=== PATIENT | female | born 1950 | race Two or more races ===

== ENCOUNTER → 2020-09-23 | Day surgery (SDC) | payer MEDICARE, MEDICAID ==
[2020-09-18 12:17] LABS: Urine WBC None Seen /hpf (0 - 5)
[2020-09-18 12:29] LABS: Basophils # (auto) 0 10 ^3/uL (0-0.2); Basophils % (auto) 0.5 % (0.0-2.0); Eosinophils # (auto) 0.1 10 ^3/uL (0-0.8); Eosinophils % (auto) 0.8 % (0.0-7.0); Hematocrit 42.6 % (36.0-46.0); Hemoglobin 14.2 g/dL (12.2-16.2); Lymphocytes # (auto) 2.5 10 ^3/uL (0.4-5.4); Lymphocytes % (auto) 33.4 % (10.0-50.0); Mean Corpuscular Hgb Conc. 33.4 g/dL (32.0-36.0); Mean Corpuscular Volume 95.8 fL (80.0-100.0); Monocytes # (auto) 0.8 10 ^3/uL (0-1.3); Monocytes % (auto) 11.1 % (0.0-12.0); Neutrophils % (auto) 54.2 % (37.0-80.0); Nucleated Red Blood Cells % 0.2 %; Red Blood Cells 4.44 10^6/uL (4.0-5.20); Red Cell Distribution Width 13.7 % (11.8-14.3); White Blood Cell 7.4 10^3/uL (4.4-10.8)
[2020-09-18 12:35] LABS: Urine Bacteria FEW /hpf (None Seen); Urine Blood Negative /uL (Negative); Urine Hyaline Cast MOD /lpf (0 - 2); Urine Mucus FEW (None Seen); Urine Specific Gravity 1.025 (1.001-1.035)
[2020-09-18 12:59] LABS: INR 1.05 (0.9-1.15)
[2020-09-18 13:00] LABS: Potassium 3.7 mmol/L (3.5-5.1)
[2020-09-18 13:07] LABS: BUN/Creatinine Ratio 23.4; Calcium 9.2 mg/dL (8.5-10.1); Total Protein 7.5 g/dL (6.4-8.2)
[~2020-09-23] VITALS: Ht 152.4 cm; Wt 65.8 kg
[~2020-09-23] MED LIST: AMLO-489 PO; ASCO500T11 PO; CHOL500021 PO; GABA300C10 PO; HYDR-4072 PO; HYDR25TA4 PO; HYDROmorphone HCL 2 MG/ML VL IV PRN; MELO1TAB56 PO; MIDAZOLAM HCL 2MG/2ML 2ml VIAL (1mg/ml) ONE; MORPHINE SULFATE 4 MG/ML SYR/VIAL IV PRN; NEOMYCIN-BACITRACIN-POLYM 15GM TOP OINT TOP ONE; OMEP20TA PO; ONDANSETRON HCL 4 MG/2 ML VIAL IV PRN; ONDANSETRON HCL 4 MG/2 ML VIAL ONE; PROPOFOL 10 MG/ML 20 ML IV ONE; ROPIVACAINE 0.5% (5MG/ML) 20ML AMPULE IJ ONE; SODIUM CHLORIDE LOCK 10 ML ONE; ceFAZolin 1GM/50ML 50 ML IV ONE; fentaNYL CITRATE 100 MCG/2 ML VL ONE
[2020-09-23 10:40] VITALS: BP 139/73
== END | disposition home or self-care (01) ==
LOC: SUR 07:17
PROVIDERS: ATTEND Podiatrist Foot & Ankle Surgery
DX: M25.571 Pain in right ankle and joints of right foot (principal); H26.8 Other specified cataract; K21.9 Gastro-esophageal reflux disease without esophagitis; I10 Essential (primary) hypertension; Z88.5 Allergy status to narcotic agent; I25.118 Atherosclerotic heart disease of native coronary artery with other forms of angina pectoris; G62.89 Other specified polyneuropathies; G89.29 Other chronic pain; M19.90 Unspecified osteoarthritis, unspecified site; Z87.891 Personal history of nicotine dependence; Z20.822 Contact with and (suspected) exposure to COVID-19; Z98.890 Other specified postprocedural states; Z79.899 Other long term (current) drug therapy; Z90.710 Acquired absence of both cervix and uterus; Z86.19 Personal history of other infectious and parasitic diseases; Z88.8 Allergy status to other drugs, medicaments and biological substances
CPT/HCPCS: 20680; 36415; 80053; 81001; 85025; 85610; 85730; 88300; J0690; J1170; J2250; J2270; J2405; J2704; J2795; J3010; U0003

== ENCOUNTER → 2021-05-05 | Day surgery (SDC) | payer MEDICARE, MEDICAID ==
[2021-05-04 11:57] LABS: Potassium 3.6 mmol/L (3.5-5.1)
[2021-05-04 12:07] LABS: BUN/Creatinine Ratio 37.8; Calcium 8.8 mg/dL (8.5-10.1); Total Protein 7.1 g/dL (6.4-8.2)
[2021-05-04 12:09] LABS: Basophils # (auto) 0 10 ^3/uL (0-0.2); Basophils % (auto) 0.5 % (0.0-2.0); Eosinophils # (auto) 0 10 ^3/uL (0-0.8); Eosinophils % (auto) 0.6 % (0.0-7.0); Hematocrit 40.1 % (36.0-46.0); Hemoglobin 13.5 g/dL (12.2-16.2); Lymphocytes # (auto) 2.2 10 ^3/uL (0.4-5.4); Lymphocytes % (auto) 28.4 % (10.0-50.0); Mean Corpuscular Hemoglobin 32.8 pg (28.0-32.0); Mean Corpuscular Hgb Conc. 33.6 g/dL (32.0-36.0); Mean Corpuscular Volume 97.5 fL (80.0-100.0); Monocytes # (auto) 0.9 10 ^3/uL (0-1.3); Monocytes % (auto) 11.9 % (0.0-12.0); Neutrophils # (auto) 4.5 10 ^3/uL (1.6-8.6); Neutrophils % (auto) 58.6 % (37.0-80.0); Red Blood Cells 4.12 10^6/uL (4.0-5.20); Red Cell Distribution Width 13.3 % (11.8-14.3); White Blood Cell 7.6 10^3/uL (4.4-10.8)
[2021-05-04 12:32] LABS: Urine Bacteria NONE SEEN /hpf (None Seen); Urine Blood Negative /uL (Negative); Urine Mucus FEW (None Seen); Urine WBC <1 /hpf (0 - 5)
[~2021-05-05] VITALS: Ht 152.4 cm; Wt 59.9 kg
[~2021-05-05] MED LIST changes: +ATO40T PO; +DICY10CA PO; +METOCLOPRAMIDE HCL 5MG/ml INJ 2ml VIAL IV PRN; +NITR0.4S29 SL; +ONDA-144 PO; -ONDANSETRON HCL 4 MG/2 ML VIAL IV PRN; -SODIUM CHLORIDE LOCK 10 ML ONE; +SUCR1SUS5 PO; +ceFAZolin 1GM/50ML 100 ML IV ONE; -ceFAZolin 1GM/50ML 50 ML IV ONE; +methylPREDNISolone ACETATE 80 MG/ML VL ONE
[2021-05-05 12:25] VITALS: BP 125/75
== END | disposition home or self-care (01) ==
LOC: SUR 07:44
PROVIDERS: ATTEND Podiatrist Foot & Ankle Surgery
DX: G57.62 Lesion of plantar nerve, left lower limb (principal); I10 Essential (primary) hypertension; G89.29 Other chronic pain; F32.9 Major depressive disorder, single episode, unspecified; E78.5 Hyperlipidemia, unspecified; Z20.822 Contact with and (suspected) exposure to COVID-19; Z87.891 Personal history of nicotine dependence; Z98.890 Other specified postprocedural states; Z79.899 Other long term (current) drug therapy
CPT/HCPCS: 36415; 64704; 80053; 81001; 85025; J0690; J1040; J2250; J2270; J2405; J2704; J2795; J3010; U0003

== ENCOUNTER 2022-08-05 23:18 | Inpatient (IN) | payer MEDICARE, MEDICAID ==
[~2022-08-05] VITALS: Ht 152.4 cm; Wt 75.0 kg
[~2022-08-05 23:18] MED LIST changes: -HYDROmorphone HCL 2 MG/ML VL IV PRN; -METOCLOPRAMIDE HCL 5MG/ml INJ 2ml VIAL IV PRN; -MIDAZOLAM HCL 2MG/2ML 2ml VIAL (1mg/ml) ONE; -MORPHINE SULFATE 4 MG/ML SYR/VIAL IV PRN; -NEOMYCIN-BACITRACIN-POLYM 15GM TOP OINT TOP ONE; -ONDANSETRON HCL 4 MG/2 ML VIAL ONE; -PROPOFOL 10 MG/ML 20 ML IV ONE; -ROPIVACAINE 0.5% (5MG/ML) 20ML AMPULE IJ ONE; -ceFAZolin 1GM/50ML 100 ML IV ONE; -fentaNYL CITRATE 100 MCG/2 ML VL ONE; -methylPREDNISolone ACETATE 80 MG/ML VL ONE
[2022-08-06 00:37] LABS: Basophils # (auto) 0 10 ^3/uL (0-0.2); Basophils % (auto) 0.3 % (0.0-2.0); Eosinophils # (auto) 0 10 ^3/uL (0-0.8); Eosinophils % (auto) 0.1 % (0.0-7.0); Hematocrit 38.1 % (36.0-46.0); Hemoglobin 12.7 g/dL (12.2-16.2); Lymphocytes # (auto) 1.7 10 ^3/uL (0.4-5.4); Lymphocytes % (auto) 10.3 % (10.0-50.0); Mean Corpuscular Hemoglobin 32.5 pg (28.0-32.0); Mean Corpuscular Hgb Conc. 33.2 g/dL (32.0-36.0); Mean Corpuscular Volume 97.8 fL (80.0-100.0); Monocytes # (auto) 2.1 10 ^3/uL (0-1.3); Monocytes % (auto) 12.7 % (0.0-12.0); Neutrophils # (auto) 12.5 10 ^3/uL (1.6-8.6); Neutrophils % (auto) 76.6 % (37.0-80.0); Nucleated Red Blood Cells % 0.1 %; Red Cell Distribution Width 14.7 % (11.8-14.3); White Blood Cell 16.3 10^3/uL (4.4-10.8)
[2022-08-06 00:56] LABS: Albumin 2.3 g/dL (3.4-5.0); BUN/Creatinine Ratio 17.2
[2022-08-06 00:58] LABS: Bilirubin, Total 1.7 mg/dL (0.2-1.0); Total Protein 5.6 g/dL (6.4-8.2)
[2022-08-06 01:00] LABS: Lactic Acid w/Reflex 2.2 mmol/L (0.4-2.0)
[2022-08-06 01:01] LABS: Potassium 2.5 mmol/L (3.5-5.1)
[2022-08-06 01:02] LABS: Calcium 13.2 mg/dL (8.5-10.1)
[2022-08-06] MEDS ORDERED: POTASSIUM CHL 20 Meq TABLET PO ONE (01:30)
[2022-08-06 02:23] LABS: Urine WBC None Seen /hpf (0 - 5)
[2022-08-06 02:38] LABS: Urine Bacteria FEW /hpf (None Seen); Urine Blood TRACE /uL (Negative); Urine Specific Gravity 1.007 (1.001-1.035)
[2022-08-06] MEDS ORDERED: PIPERACILLIN-TAZOB 3.375GM 100 ML IV ONE (04:15)
[2022-08-06] MEDS ORDERED: FUROSEMIDE 20 MG/2 ML VIAL IV ONE (05:15)
[2022-08-06] MEDS ORDERED: POTASSIUM EFFERVESENT TAB 25 MEQ PO ONE (08:45)
[2022-08-06] MEDS ORDERED: ACETAMINOPHEN 325 MG TAB PO PRN (09:00)
[2022-08-06] MEDS ORDERED: NITROGLYCERIN 0.4 MG SL TAB SL PRN (09:00)
[2022-08-06] MEDS ORDERED: MORPHINE SULFATE INJ 2 MG/ml SYRG IV PRN (09:00)
[2022-08-06] MEDS ORDERED: IOHEXOL 350 MG/ML 100ML IJ ONE (09:02)
[2022-08-06] MEDS: ENOXAPARIN SOD 40 MG/0.4 ML SYRINGE SC SCH (09:15)
[2022-08-06] MEDS: ASCORBIC ACID 500 MG TAB PO SCH (09:15)
[2022-08-06] MEDS: amLODIPine BESYLATE 5 MG TAB PO SCH (09:16)
[2022-08-06] MEDS: HCTZ 25 MG TAB PO SCH (09:16)
[2022-08-06] MEDS: CHOLECALCIFEROL (VITD3) 1,000UNIT=25mCg TAB PO SCH (09:17)
[2022-08-06] MEDS ORDERED: MELOXICAM 15 MG TAB PO SCH (10:00)
[2022-08-06] MEDS: PIPERACILLIN-TAZOB 3.375GM 100 ML IV SCH ×2 (12:09→17:49)
[2022-08-06 13:19] LABS: Potassium 3.4 mmol/L (3.5-5.1)
[2022-08-06 13:21] LABS: Magnesium 1.2 mg/dL (1.6-2.6)
[2022-08-06] MEDS: GABAPENTIN 300 MG CAP PO SCH ×2 (14:00→21:49)
[2022-08-06] MEDS: ATORVASTATIN 20 MG TAB PO SCH (21:50)
[2022-08-06] MEDS: HYDROcodone-ACET 5/325MG TAB PO PRN (21:50)
[2022-08-06 22:00] VITALS: BP 134/79
[2022-08-07] VITALS (7 sets, daily range): BP systolic 100–132; BP diastolic 57–83
[2022-08-07] MEDS: PIPERACILLIN-TAZOB 3.375GM 100 ML IV SCH ×4 (00:02→22:00)
[2022-08-07] MEDS: GABAPENTIN 300 MG CAP PO SCH ×3 (05:39→22:33)
[2022-08-07 06:10] LABS: Basophils # (auto) 0 10 ^3/uL (0-0.2); Basophils % (auto) 0.2 % (0.0-2.0); Eosinophils # (auto) 0.1 10 ^3/uL (0-0.8); Eosinophils % (auto) 0.6 % (0.0-7.0); Hemoglobin 11.7 g/dL (12.2-16.2); Lymphocytes # (auto) 2.2 10 ^3/uL (0.4-5.4); Lymphocytes % (auto) 16.2 % (10.0-50.0); Mean Corpuscular Hemoglobin 32.3 pg (28.0-32.0); Mean Corpuscular Hgb Conc. 33.3 g/dL (32.0-36.0); Mean Corpuscular Volume 96.9 fL (80.0-100.0); Monocytes # (auto) 1.8 10 ^3/uL (0-1.3); Monocytes % (auto) 13.3 % (0.0-12.0); Neutrophils # (auto) 9.3 10 ^3/uL (1.6-8.6); Neutrophils % (auto) 69.7 % (37.0-80.0); Nucleated Red Blood Cells % 0.1 %; Red Blood Cells 3.61 10^6/uL (4.0-5.20); Red Cell Distribution Width 14.4 % (11.8-14.3); White Blood Cell 13.3 10^3/uL (4.4-10.8)
[2022-08-07 06:11] LABS: Albumin 2.1 g/dL (3.4-5.0); Calcium 12.6 mg/dL (8.5-10.1)
[2022-08-07 06:14] LABS: BUN/Creatinine Ratio 16.2; Bilirubin, Total 1.4 mg/dL (0.2-1.0); Total Protein 4.6 g/dL (6.4-8.2)
[2022-08-07 06:25] LABS: Potassium 2.4 mmol/L (3.5-5.1)
[2022-08-07] MEDS: POTASSIUM CHL 20MEQ/100ML 100 ML IV SCH ×3 (10:35→20:24)
[2022-08-07] MEDS: HYDROcodone-ACET 5/325MG TAB PO PRN (10:35)
[2022-08-07] MEDS: ASCORBIC ACID 500 MG TAB PO SCH (10:35)
[2022-08-07] MEDS: ENOXAPARIN SOD 40 MG/0.4 ML SYRINGE SC SCH (10:36)
[2022-08-07] MEDS: CHOLECALCIFEROL (VITD3) 1,000UNIT=25mCg TAB PO SCH (10:36)
[2022-08-07] MEDS: amLODIPine BESYLATE 5 MG TAB PO SCH (10:42)
[2022-08-07] MEDS: HCTZ 25 MG TAB PO SCH (10:42)
[2022-08-07] MEDS ORDERED: MAGNESIUM OXIDE 400 MG TAB PO ONE (13:00)
[2022-08-07] MEDS ORDERED: POTASSIUM CHL 20 Meq TABLET PO ONE ×2 (13:00→14:30)
[2022-08-07 14:07] LABS: Urine Bacteria FEW /hpf (None Seen); Urine Blood Negative /uL (Negative); Urine Mucus FEW (None Seen); Urine Specific Gravity 1.029 (1.001-1.035); Urine WBC 59 /hpf (0 - 5)
[2022-08-07] MEDS: SODIUM CHLORIDE 0.9% 1,000 ML IV ONE ×3 (15:00→18:31)
[2022-08-07] MEDS: SOD CHL 0.9%/ KCL 40MEQ 1,000 ML IV ONE ×2 (15:20→22:31)
[2022-08-07] MEDS ORDERED: MAGNESIUM SULFATE 1GM/100ML 0 ML IV ONE (20:09)
[2022-08-07] MEDS ORDERED: POTASSIUM CHL 20MEQ/100ML 100 ML IV ONE (20:20)
[2022-08-07] MEDS ORDERED: MAGNESIUM SULFATE 1GM/100ML 300 ML IV ONE (20:22)
[2022-08-07] MEDS: ATORVASTATIN 20 MG TAB PO SCH (22:33)
[2022-08-08] MEDS: MAGNESIUM SULFATE 1GM/100ML 100 ML IV SCH ×3 (00:05→01:53)
[2022-08-08] MEDS: PIPERACILLIN-TAZOB 3.375GM 100 ML IV SCH ×4 (02:54→21:32)
[2022-08-08 05:00] VITALS: BP 113/78
[2022-08-08] MEDS: GABAPENTIN 300 MG CAP PO SCH ×3 (06:02→21:32)
[2022-08-08 06:18] LABS: Basophils # (auto) 0 10 ^3/uL (0-0.2); Basophils % (auto) 0.4 % (0.0-2.0); Eosinophils # (auto) 0.1 10 ^3/uL (0-0.8); Hematocrit 38.8 % (36.0-46.0); Hemoglobin 12.9 g/dL (12.2-16.2); Lymphocytes # (auto) 1.9 10 ^3/uL (0.4-5.4); Lymphocytes % (auto) 14.5 % (10.0-50.0); Mean Corpuscular Hemoglobin 32.3 pg (28.0-32.0); Mean Corpuscular Hgb Conc. 33.1 g/dL (32.0-36.0); Mean Corpuscular Volume 97.5 fL (80.0-100.0); Monocytes # (auto) 1.7 10 ^3/uL (0-1.3); Monocytes % (auto) 12.9 % (0.0-12.0); Neutrophils # (auto) 9.4 10 ^3/uL (1.6-8.6); Neutrophils % (auto) 71.2 % (37.0-80.0); Nucleated Red Blood Cells % 0.1 %; Red Blood Cells 3.98 10^6/uL (4.0-5.20); Red Cell Distribution Width 14.7 % (11.8-14.3); White Blood Cell 13.2 10^3/uL (4.4-10.8)
[2022-08-08 06:36] LABS: BUN/Creatinine Ratio 17.1; Magnesium 1.9 mg/dL (1.6-2.6); Phosphorus 1.2 mg/dL (2.5-4.90); Potassium 3.4 mmol/L (3.5-5.1); Total Protein 4.8 g/dL (6.4-8.2)
[2022-08-08 07:45] VITALS: BP 132/72
[2022-08-08 08:00] VITALS: BP 132/72
[2022-08-08] MEDS: ENOXAPARIN SOD 40 MG/0.4 ML SYRINGE SC SCH (08:01)
[2022-08-08 08:37] LABS: INR 1.4 (0.9-1.15)
[2022-08-08] MEDS: amLODIPine BESYLATE 5 MG TAB PO SCH (08:55)
[2022-08-08] MEDS: ASCORBIC ACID 500 MG TAB PO SCH (08:55)
[2022-08-08] MEDS: MAGNESIUM OXIDE 400 MG TAB PO SCH (08:56)
[2022-08-08] MEDS: CHOLECALCIFEROL (VITD3) 1,000UNIT=25mCg TAB PO SCH (08:56)
[2022-08-08 13:00] VITALS: BP 89/60
[2022-08-08] MEDS ORDERED: POTASSIUM PHOSPHATE 44 MEQ in D5W 5% 250 ML IV ONE (13:15)
[2022-08-08] MEDS ORDERED: LIDOCAINE 2%HCL (LOCAL ANESTH.) INJ 10ml MDV ONE (13:30)
[2022-08-08] MEDS ORDERED: fentaNYL CITRATE 100 MCG/2 ML VL ONE (13:43)
[2022-08-08] MEDS ORDERED: MIDAZOLAM HCL 2MG/2ML 2ml VIAL (1mg/ml) ONE (13:43)
[2022-08-08] MEDS ORDERED: fentaNYL CITRATE 100 MCG/2 ML VL IV ONE (13:45)
[2022-08-08] MEDS ORDERED: MIDAZOLAM HCL 2MG/2ML 2ml VIAL (1mg/ml) IV ONE (13:45)
[2022-08-08] MEDS: PANTOPRAZOLE 40 MG TAB PO SCH (15:05)
[2022-08-08] MEDS: SOD CHL 0.9%/ KCL 40MEQ 1,000 ML IV SCH (15:10)
[2022-08-08 17:00] VITALS: BP 107/65
[2022-08-08] MEDS: ATORVASTATIN 20 MG TAB PO SCH (21:32)
[2022-08-08 21:55] VITALS: BP 110/70
[2022-08-08] MEDS: HYDROcodone-ACET 5/325MG TAB PO PRN (21:57)
[2022-08-09] MEDS: PIPERACILLIN-TAZOB 3.375GM 100 ML IV SCH ×4 (02:10→21:46)
[2022-08-09] MEDS: SOD CHL 0.9%/ KCL 40MEQ 1,000 ML IV SCH ×2 (03:22→15:55)
[2022-08-09 05:00] VITALS: BP 112/70
[2022-08-09] MEDS: GABAPENTIN 300 MG CAP PO SCH ×3 (05:34→21:47)
[2022-08-09 08:16] VITALS: BP 134/82
[2022-08-09 08:28] LABS: Basophils # (auto) 0.1 10 ^3/uL (0-0.2); Basophils % (auto) 0.4 % (0.0-2.0); Eosinophils # (auto) 0.1 10 ^3/uL (0-0.8); Hematocrit 40.7 % (36.0-46.0); Hemoglobin 13.5 g/dL (12.2-16.2); Lymphocytes # (auto) 2.2 10 ^3/uL (0.4-5.4); Lymphocytes % (auto) 15.3 % (10.0-50.0); Mean Corpuscular Hemoglobin 32.3 pg (28.0-32.0); Mean Corpuscular Hgb Conc. 33.2 g/dL (32.0-36.0); Mean Corpuscular Volume 97.5 fL (80.0-100.0); Monocytes # (auto) 1.4 10 ^3/uL (0-1.3); Monocytes % (auto) 9.9 % (0.0-12.0); Neutrophils # (auto) 10.4 10 ^3/uL (1.6-8.6); Neutrophils % (auto) 73.4 % (37.0-80.0); Nucleated Red Blood Cells % 0.1 %; Red Blood Cells 4.17 10^6/uL (4.0-5.20); Red Cell Distribution Width 14.7 % (11.8-14.3); White Blood Cell 14.2 10^3/uL (4.4-10.8)
[2022-08-09 08:43] LABS: Albumin 2.1 g/dL (3.4-5.0); BUN/Creatinine Ratio 14.8; Calcium 11.6 mg/dL (8.5-10.1); Magnesium 1.8 mg/dL (1.6-2.6); Phosphorus 3.1 mg/dL (2.5-4.90); Total Protein 5.2 g/dL (6.4-8.2)
[2022-08-09] MEDS: amLODIPine BESYLATE 5 MG TAB PO SCH (10:00)
[2022-08-09] MEDS: HYDROcodone-ACET 5/325MG TAB PO PRN (10:03)
[2022-08-09] MEDS: MAGNESIUM OXIDE 400 MG TAB PO SCH (10:04)
[2022-08-09] MEDS: PANTOPRAZOLE 40 MG TAB PO SCH (10:04)
[2022-08-09] MEDS: ASCORBIC ACID 500 MG TAB PO SCH (10:04)
[2022-08-09] MEDS: ENOXAPARIN SOD 40 MG/0.4 ML SYRINGE SC SCH (10:05)
[2022-08-09] MEDS: CHOLECALCIFEROL (VITD3) 1,000UNIT=25mCg TAB PO SCH (10:17)
[2022-08-09 13:00] VITALS: BP 95/59
[2022-08-09] MEDS ORDERED: ALBUMIN 25% 100 ML IV ONE (15:45)
[2022-08-09] MEDS ORDERED: SODIUM CHLORIDE 0.9% 500 ML IV ONE (15:45)
[2022-08-09 16:55] VITALS: BP 104/58
[2022-08-09 20:00] VITALS: BP 102/63
[2022-08-09] MEDS: ATORVASTATIN 20 MG TAB PO SCH (21:47)
[2022-08-09 21:56] VITALS: BP 102/63
[2022-08-10] MEDS: SOD CHL 0.9%/ KCL 40MEQ 1,000 ML IV SCH (02:31)
[2022-08-10] MEDS: PIPERACILLIN-TAZOB 3.375GM 100 ML IV SCH ×4 (04:00→22:27)
[2022-08-10 05:00] VITALS: BP 100/62
[2022-08-10] MEDS: GABAPENTIN 300 MG CAP PO SCH ×3 (05:12→22:27)
[2022-08-10 07:11] LABS: Basophils # (auto) 0.1 10 ^3/uL (0-0.2); Basophils % (auto) 0.4 % (0.0-2.0); Eosinophils # (auto) 0.1 10 ^3/uL (0-0.8); Eosinophils % (auto) 0.7 % (0.0-7.0); Hematocrit 35.7 % (36.0-46.0); Hemoglobin 11.9 g/dL (12.2-16.2); Lymphocytes # (auto) 3.7 10 ^3/uL (0.4-5.4); Lymphocytes % (auto) 18.7 % (10.0-50.0); Mean Corpuscular Hemoglobin 32.6 pg (28.0-32.0); Mean Corpuscular Hgb Conc. 33.3 g/dL (32.0-36.0); Monocytes # (auto) 2.2 10 ^3/uL (0-1.3); Monocytes % (auto) 11.1 % (0.0-12.0); Neutrophils # (auto) 13.8 10 ^3/uL (1.6-8.6); Neutrophils % (auto) 69.1 % (37.0-80.0); Nucleated Red Blood Cells % 0.1 %; Red Blood Cells 3.65 10^6/uL (4.0-5.20); Red Cell Distribution Width 14.5 % (11.8-14.3); White Blood Cell 19.9 10^3/uL (4.4-10.8)
[2022-08-10 07:43] LABS: BUN/Creatinine Ratio 17.4; Potassium 4.7 mmol/L (3.5-5.1)
[2022-08-10 09:00] VITALS: BP 106/64
[2022-08-10 10:16] LABS: Basophils # (auto) 0 10 ^3/uL (0-0.2); Basophils % (auto) 0.2 % (0.0-2.0); Eosinophils # (auto) 0.1 10 ^3/uL (0-0.8); Eosinophils % (auto) 0.6 % (0.0-7.0); Hematocrit 35.6 % (36.0-46.0); Hemoglobin 11.6 g/dL (12.2-16.2); Lymphocytes # (auto) 2.8 10 ^3/uL (0.4-5.4); Lymphocytes % (auto) 15.1 % (10.0-50.0); Mean Corpuscular Hgb Conc. 32.7 g/dL (32.0-36.0); Mean Corpuscular Volume 97.9 fL (80.0-100.0); Monocytes # (auto) 2.2 10 ^3/uL (0-1.3); Monocytes % (auto) 11.7 % (0.0-12.0); Neutrophils # (auto) 13.6 10 ^3/uL (1.6-8.6); Neutrophils % (auto) 72.4 % (37.0-80.0); Red Blood Cells 3.64 10^6/uL (4.0-5.20); Red Cell Distribution Width 14.3 % (11.8-14.3); White Blood Cell 18.8 10^3/uL (4.4-10.8)
[2022-08-10] MEDS: MAGNESIUM OXIDE 400 MG TAB PO SCH (10:19)
[2022-08-10] MEDS: CHOLECALCIFEROL (VITD3) 1,000UNIT=25mCg TAB PO SCH (10:26)
[2022-08-10] MEDS: amLODIPine BESYLATE 5 MG TAB PO SCH (10:26)
[2022-08-10] MEDS: ASCORBIC ACID 500 MG TAB PO SCH (10:26)
[2022-08-10] MEDS: PANTOPRAZOLE 40 MG TAB PO SCH (10:26)
[2022-08-10] MEDS: ENOXAPARIN SOD 40 MG/0.4 ML SYRINGE SC SCH (10:27)
[2022-08-10] MEDS ORDERED: ENOXAPARIN SOD 30 MG/0.3 ML SYRINGE SC ONE (12:00)
[2022-08-10 13:41] VITALS: BP 111/64
[2022-08-10] MEDS: HYDROcodone-ACET 5/325MG TAB PO PRN (14:06)
[2022-08-10 16:31] VITALS: BP 96/60
[2022-08-10 20:00] VITALS: BP 104/65
[2022-08-10 22:00] VITALS: BP 104/65
[2022-08-10] MEDS: ATORVASTATIN 20 MG TAB PO SCH (22:27)
[2022-08-10] MEDS: ENOXAPARIN SOD 80 MG/0.8ML SYRINGE SC SCH (22:28)
[2022-08-11] MEDS: PIPERACILLIN-TAZOB 3.375GM 100 ML IV SCH ×4 (04:19→21:17)
[2022-08-11 05:00] VITALS: BP 151/71
[2022-08-11] MEDS: HYDROcodone-ACET 5/325MG TAB PO PRN (05:23)
[2022-08-11] MEDS: GABAPENTIN 300 MG CAP PO SCH ×3 (05:23→21:19)
[2022-08-11 08:11] LABS: Basophils # (auto) 0.1 10 ^3/uL (0-0.2); Basophils % (auto) 0.4 % (0.0-2.0); Eosinophils # (auto) 0.2 10 ^3/uL (0-0.8); Hematocrit 33.3 % (36.0-46.0); Hemoglobin 11.4 g/dL (12.2-16.2); Lymphocytes # (auto) 2.5 10 ^3/uL (0.4-5.4); Lymphocytes % (auto) 12.6 % (10.0-50.0); Mean Corpuscular Hemoglobin 32.9 pg (28.0-32.0); Mean Corpuscular Hgb Conc. 34.2 g/dL (32.0-36.0); Mean Corpuscular Volume 96.1 fL (80.0-100.0); Monocytes # (auto) 2.5 10 ^3/uL (0-1.3); Neutrophils # (auto) 14.3 10 ^3/uL (1.6-8.6); Red Blood Cells 3.47 10^6/uL (4.0-5.20); Red Cell Distribution Width 14.3 % (11.8-14.3); White Blood Cell 19.5 10^3/uL (4.4-10.8)
[2022-08-11 08:27] VITALS: BP 103/62
[2022-08-11 08:36] LABS: BUN/Creatinine Ratio 19.4; Calcium 10.5 mg/dL (8.5-10.1); Magnesium 1.6 mg/dL (1.6-2.6); Potassium 4.6 mmol/L (3.5-5.1)
[2022-08-11] MEDS ORDERED: LORazepam 0.5 MG TAB PO ONE (09:00)
[2022-08-11] MEDS: amLODIPine BESYLATE 5 MG TAB PO SCH (10:00)
[2022-08-11] MEDS: ASCORBIC ACID 500 MG TAB PO SCH (10:33)
[2022-08-11] MEDS: PANTOPRAZOLE 40 MG TAB PO SCH (10:34)
[2022-08-11] MEDS: MAGNESIUM OXIDE 400 MG TAB PO SCH ×2 (10:34→21:20)
[2022-08-11] MEDS: CHOLECALCIFEROL (VITD3) 1,000UNIT=25mCg TAB PO SCH (10:36)
[2022-08-11] MEDS: ENOXAPARIN SOD 80 MG/0.8ML SYRINGE SC SCH ×2 (10:39→21:20)
[2022-08-11 13:00] VITALS: BP 121/77
[2022-08-11 16:41] VITALS: BP 113/87
[2022-08-11] MEDS: Juven Fruit Punch Powder PACKET 28.8gm PO SCH (18:00)
[2022-08-11] MEDS: Ensure HIGH Protein Chocolate 8oz Bottle PO SCH (18:00)
[2022-08-11] MEDS: ATORVASTATIN 20 MG TAB PO SCH (21:19)
[2022-08-11 22:00] VITALS: BP 130/76
[2022-08-12 05:16] VITALS: BP 115/71
[2022-08-12] MEDS: GABAPENTIN 300 MG CAP PO SCH ×3 (05:35→22:18)
[2022-08-12] MEDS: PIPERACILLIN-TAZOB 3.375GM 100 ML IV SCH ×4 (05:35→22:19)
[2022-08-12] MEDS: Juven Fruit Punch Powder PACKET 28.8gm PO SCH ×2 (08:06→18:19)
[2022-08-12] MEDS: Ensure HIGH Protein Chocolate 8oz Bottle PO SCH ×2 (08:06→18:19)
[2022-08-12 09:17] VITALS: BP 117/76
[2022-08-12] MEDS: amLODIPine BESYLATE 5 MG TAB PO SCH (10:00)
[2022-08-12] MEDS: MAGNESIUM OXIDE 400 MG TAB PO SCH ×2 (10:20→22:18)
[2022-08-12] MEDS: ASCORBIC ACID 500 MG TAB PO SCH (10:20)
[2022-08-12] MEDS: ENOXAPARIN SOD 80 MG/0.8ML SYRINGE SC SCH ×2 (10:21→22:20)
[2022-08-12] MEDS: PANTOPRAZOLE 40 MG TAB PO SCH (10:21)
[2022-08-12] MEDS: CHOLECALCIFEROL (VITD3) 1,000UNIT=25mCg TAB PO SCH (10:22)
[2022-08-12] MEDS: Pro-Stat SF 30ml Vanilla PO SCH (10:23)
[2022-08-12] MEDS ORDERED: GADOTERATE MEG 7.5 MMOL/15ml INJ (0.5MMOL/ml) IV ONE (10:58)
[2022-08-12 13:19] LABS: Basophils # (auto) 0 10 ^3/uL (0-0.2); Basophils % (auto) 0.2 % (0.0-2.0); Eosinophils # (auto) 0.3 10 ^3/uL (0-0.8); Eosinophils % (auto) 1.5 % (0.0-7.0); Hematocrit 37.3 % (36.0-46.0); Hemoglobin 12.1 g/dL (12.2-16.2); Lymphocytes # (auto) 2.4 10 ^3/uL (0.4-5.4); Lymphocytes % (auto) 13.3 % (10.0-50.0); Mean Corpuscular Hemoglobin 31.8 pg (28.0-32.0); Mean Corpuscular Hgb Conc. 32.5 g/dL (32.0-36.0); Mean Corpuscular Volume 97.9 fL (80.0-100.0); Monocytes # (auto) 2.7 10 ^3/uL (0-1.3); Monocytes % (auto) 14.8 % (0.0-12.0); Neutrophils # (auto) 12.7 10 ^3/uL (1.6-8.6); Neutrophils % (auto) 70.2 % (37.0-80.0); Nucleated Red Blood Cells % 0.1 %; Red Blood Cells 3.81 10^6/uL (4.0-5.20); Red Cell Distribution Width 14.7 % (11.8-14.3); White Blood Cell 18.1 10^3/uL (4.4-10.8)
[2022-08-12 13:35] LABS: Albumin 1.8 g/dL (3.4-5.0); Calcium 10.9 mg/dL (8.5-10.1); Potassium 3.8 mmol/L (3.5-5.1)
[2022-08-12 13:37] LABS: BUN/Creatinine Ratio 21.6
[2022-08-12 13:40] LABS: Total Protein 5.2 g/dL (6.4-8.2)
[2022-08-12 13:58] VITALS: BP 119/65
[2022-08-12 16:00] VITALS: BP 145/82
[2022-08-12] MEDS ORDERED: traMADol HCL 50 MG TAB PO PRN (18:30)
[2022-08-12] MEDS ORDERED: ONDANSETRON HCL 4 MG/2 ML VIAL IM ONE (18:30)
[2022-08-12 22:00] VITALS: BP 97/54
[2022-08-12] MEDS: ATORVASTATIN 20 MG TAB PO SCH (22:18)
[2022-08-13] MEDS: PIPERACILLIN-TAZOB 3.375GM 100 ML IV SCH ×4 (04:15→21:59)
[2022-08-13 05:00] VITALS: BP 104/54
[2022-08-13] MEDS: GABAPENTIN 300 MG CAP PO SCH ×3 (06:00→21:59)
[2022-08-13 06:22] LABS: Basophils # (auto) 0.1 10 ^3/uL (0-0.2); Basophils % (auto) 0.4 % (0.0-2.0); Eosinophils # (auto) 0.3 10 ^3/uL (0-0.8); Eosinophils % (auto) 2.4 % (0.0-7.0); Hematocrit 34.8 % (36.0-46.0); Hemoglobin 11.4 g/dL (12.2-16.2); Lymphocytes # (auto) 2.3 10 ^3/uL (0.4-5.4); Mean Corpuscular Hemoglobin 32.2 pg (28.0-32.0); Mean Corpuscular Hgb Conc. 32.8 g/dL (32.0-36.0); Mean Corpuscular Volume 98.2 fL (80.0-100.0); Monocytes # (auto) 2.3 10 ^3/uL (0-1.3); Monocytes % (auto) 15.9 % (0.0-12.0); Neutrophils # (auto) 9.4 10 ^3/uL (1.6-8.6); Neutrophils % (auto) 65.3 % (37.0-80.0); Nucleated Red Blood Cells % 0.1 %; Red Blood Cells 3.55 10^6/uL (4.0-5.20); Red Cell Distribution Width 14.5 % (11.8-14.3); White Blood Cell 14.3 10^3/uL (4.4-10.8)
[2022-08-13 06:40] LABS: Potassium 3.5 mmol/L (3.5-5.1)
[2022-08-13 06:50] LABS: Albumin 1.7 g/dL (3.4-5.0); BUN/Creatinine Ratio 22.6; Calcium 10.7 mg/dL (8.5-10.1); Total Protein 4.8 g/dL (6.4-8.2)
[2022-08-13 08:00] VITALS: BP 116/69
[2022-08-13] MEDS: HYDROcodone-ACET 5/325MG TAB PO PRN (08:12)
[2022-08-13] MEDS: MAGNESIUM OXIDE 400 MG TAB PO SCH ×2 (08:12→21:59)
[2022-08-13] MEDS: PANTOPRAZOLE 40 MG TAB PO SCH (08:13)
[2022-08-13] MEDS: Ensure HIGH Protein Chocolate 8oz Bottle PO SCH ×2 (08:25→17:44)
[2022-08-13] MEDS: Juven Fruit Punch Powder PACKET 28.8gm PO SCH ×2 (08:26→17:44)
[2022-08-13] MEDS: Pro-Stat SF 30ml Vanilla PO SCH (08:26)
[2022-08-13] MEDS: ASCORBIC ACID 500 MG TAB PO SCH (08:27)
[2022-08-13 08:30] VITALS: BP 116/69
[2022-08-13] MEDS: amLODIPine BESYLATE 5 MG TAB PO SCH (10:09)
[2022-08-13] MEDS: ENOXAPARIN SOD 80 MG/0.8ML SYRINGE SC SCH ×2 (11:31→22:00)
[2022-08-13] MEDS: CHOLECALCIFEROL (VITD3) 1,000UNIT=25mCg TAB PO SCH (11:32)
[2022-08-13 12:00] VITALS: BP 120/76
[2022-08-13 16:00] VITALS: BP 112/68
[2022-08-13] MEDS: ATORVASTATIN 20 MG TAB PO SCH (21:59)
[2022-08-13 22:00] VITALS: BP 111/66
[2022-08-14] MEDS: PIPERACILLIN-TAZOB 3.375GM 100 ML IV SCH ×4 (04:16→21:20)
[2022-08-14 05:00] VITALS: BP 111/69
[2022-08-14] MEDS: GABAPENTIN 300 MG CAP PO SCH ×3 (05:57→21:20)
[2022-08-14 07:02] LABS: Basophils # (auto) 0.1 10 ^3/uL (0-0.2); Basophils % (auto) 0.5 % (0.0-2.0); Eosinophils # (auto) 0.5 10 ^3/uL (0-0.8); Eosinophils % (auto) 3.5 % (0.0-7.0); Hematocrit 36.4 % (36.0-46.0); Hemoglobin 12.1 g/dL (12.2-16.2); Lymphocytes # (auto) 3.1 10 ^3/uL (0.4-5.4); Lymphocytes % (auto) 21.9 % (10.0-50.0); Mean Corpuscular Hgb Conc. 33.2 g/dL (32.0-36.0); Mean Corpuscular Volume 96.1 fL (80.0-100.0); Monocytes # (auto) 2.3 10 ^3/uL (0-1.3); Monocytes % (auto) 16.2 % (0.0-12.0); Neutrophils # (auto) 8.1 10 ^3/uL (1.6-8.6); Neutrophils % (auto) 57.9 % (37.0-80.0); Nucleated Red Blood Cells % 0.1 %; Red Blood Cells 3.79 10^6/uL (4.0-5.20); Red Cell Distribution Width 14.3 % (11.8-14.3)
[2022-08-14 07:36] LABS: Potassium 3.5 mmol/L (3.5-5.1)
[2022-08-14 07:53] LABS: Albumin 1.8 g/dL (3.4-5.0); BUN/Creatinine Ratio 24.6; Calcium 10.6 mg/dL (8.5-10.1)
[2022-08-14 09:00] VITALS: BP 121/64
[2022-08-14] MEDS: PANTOPRAZOLE 40 MG TAB PO SCH (10:21)
[2022-08-14] MEDS: amLODIPine BESYLATE 5 MG TAB PO SCH (10:22)
[2022-08-14] MEDS: CHOLECALCIFEROL (VITD3) 1,000UNIT=25mCg TAB PO SCH (10:22)
[2022-08-14] MEDS: MAGNESIUM OXIDE 400 MG TAB PO SCH ×2 (10:23→21:20)
[2022-08-14] MEDS: ASCORBIC ACID 500 MG TAB PO SCH (10:23)
[2022-08-14] MEDS: Juven Fruit Punch Powder PACKET 28.8gm PO SCH ×2 (10:26→19:23)
[2022-08-14] MEDS: Ensure HIGH Protein Chocolate 8oz Bottle PO SCH ×2 (10:26→19:23)
[2022-08-14] MEDS: Pro-Stat SF 30ml Vanilla PO SCH (10:27)
[2022-08-14] MEDS: ENOXAPARIN SOD 80 MG/0.8ML SYRINGE SC SCH ×2 (10:39→21:20)
[2022-08-14 13:00] VITALS: BP 111/71
[2022-08-14] MEDS: HYDROcodone-ACET 5/325MG TAB PO PRN ×2 (13:06→20:13)
[2022-08-14 17:00] VITALS: BP 136/71
[2022-08-14] MEDS: ATORVASTATIN 20 MG TAB PO SCH (21:20)
[2022-08-14 22:00] VITALS: BP 102/61
[2022-08-15] MEDS: PIPERACILLIN-TAZOB 3.375GM 100 ML IV SCH (04:02)
[2022-08-15 05:00] VITALS: BP 117/75
[2022-08-15] MEDS: GABAPENTIN 300 MG CAP PO SCH (05:47)
[2022-08-15 09:00] VITALS: BP 106/17
[2022-08-15] MEDS: MAGNESIUM OXIDE 400 MG TAB PO SCH (09:15)
[2022-08-15] MEDS: ENOXAPARIN SOD 80 MG/0.8ML SYRINGE SC SCH (09:16)
[2022-08-15] MEDS: PANTOPRAZOLE 40 MG TAB PO SCH (09:16)
[2022-08-15] MEDS: ASCORBIC ACID 500 MG TAB PO SCH (09:17)
[2022-08-15] MEDS: amLODIPine BESYLATE 5 MG TAB PO SCH (09:18)
[2022-08-15] MEDS: CHOLECALCIFEROL (VITD3) 1,000UNIT=25mCg TAB PO SCH (09:18)
[2022-08-15 13:00] VITALS: BP 108/59
== END 2022-08-15 16:15 | disposition hospice, home (50) | DRG 180 ==
LOC: ER 23:18 → EDBD 23:18 → TELE 08-06 08:50 → TELE-WESTW 08-06 17:33
PROVIDERS: ADMIT Nurse Practitioner Family; ATTEND Internal Medicine
PROC: 0BBF3ZX Excision of Right Lower Lung Lobe, Percutaneous Approach, Diagnostic (ICD-10-PCS; principal; 2022-08-08)
DX: C34.90 Malignant neoplasm of unspecified part of unspecified bronchus or lung (principal); E43 Unspecified severe protein-calorie malnutrition; J93.9 Pneumothorax, unspecified; C78.7 Secondary malignant neoplasm of liver and intrahepatic bile duct; M48.56XA Collapsed vertebra, not elsewhere classified, lumbar region, initial encounter for fracture; I11.0 Hypertensive heart disease with heart failure; I50.9 Heart failure, unspecified; Z20.822 Contact with and (suspected) exposure to COVID-19; Z66 Do not resuscitate; E83.52 Hypercalcemia; E87.6 Hypokalemia; R32 Unspecified urinary incontinence; M47.819 Spondylosis without myelopathy or radiculopathy, site unspecified; M51.36 Other intervertebral disc degeneration, lumbar region; G89.29 Other chronic pain; K21.9 Gastro-esophageal reflux disease without esophagitis; R74.01 Elevation of levels of liver transaminase levels; G62.9 Polyneuropathy, unspecified; Z79.899 Other long term (current) drug therapy; Z68.33 Body mass index [BMI] 33.0-33.9, adult
CPT/HCPCS: 10005; 36415; 70450; 70551; 70553; 71045; 71250; 71275; 72131; 72158; 73562; 74176; 77012; 80048; 80053; 80061; 81001; 82306; 83036; 83605; 83735; 83880; 84100; 84132; 84439; 84443; 84484; 85025; 85379; 85610; 85652; 85730; 87040; 87086; 87088; 87186; 87426; 93005; 93306; 93970; 93971; 96365; 96375; 97110; 97116; 97163; 97530; G0378; J2001; J2250; J2543; J3480; J7060; P9047